=== PATIENT | male | born 1950 | race Caucasian/White ===

== ENCOUNTER 2018-05-22 12:13 | Inpatient (IN) | payer MEDICARE ==
[~2018-05-22] VITALS: Ht 185.4 cm; Wt 48.9 kg
[2018-05-22] MEDS ORDERED: SODIUM CHLORIDE 0.9% 1,000 ML IV ONE (12:31)
[2018-05-22] MEDS ORDERED: ALBUTEROL/IPRATROPIUM 2.5MG/0.5MG, 3 ML ONE (12:41)
[2018-05-22] MEDS ORDERED: SODIUM CHLORIDE 0.9% 1,000ML IVBOLUS ONE (13:00)
[2018-05-22] MEDS ORDERED: ALBUTEROL/IPRATROPIUM 2.5MG/0.5MG, 3 ML NPPB ONE (13:00)
[2018-05-22 13:16] LABS: ALANINE AMINOTRANSFERASE 15 U/L (12-78); ALBUMIN 2.6 g/dL (3.4-5.0); ANION GAP 10 mmol/L (5-15); CALCIUM 8.7 mg/dL (8.5-10.1); CHLORIDE 103 mmol/L (98-107); CREATININE 0.59 mg/dL (0.7-1.3)
[2018-05-22] MEDS ORDERED: CEFTRIAXONE PMX 1GM/50ML 50 ML ONE (13:17)
[2018-05-22 13:20] LABS: ALKALINE PHOSPHATASE 127 U/L (45-117); BILIRUBIN,TOTAL 0.5 mg/dL (0.2-1.0); TOTAL PROTEIN 7.1 g/dL (6.4-8.2); TROPONIN I < 0.015 ng/mL (0.000-0.045)
[2018-05-22] MEDS ORDERED: CEFTRIAXONE PMX 1GM/50ML 50 ML IVPB ONE (13:30)
[2018-05-22] MEDS ORDERED: AZITHROMYCIN 500 MG in SODIUM CHLORIDE 0.9% 250 ML IVPB ONE (13:30)
[2018-05-22 14:19] LABS: BASOPHILS # (AUTO) 0.03 x10^3/uL (0-0.1); BASOPHILS % (AUTO) 0 % (0-1); EOSINOPHILS # (AUTO) 0.02 x10^3/uL (0-0.4); EOSINOPHILS % (AUTO) 0 % (1-7); LYMPHOCYTES # (AUTO) 0.58 x10^3/uL (1-3.4); LYMPHOCYTES % (AUTO) 6 % (22-44); MD NO; MEAN CORPUSCULAR HEMOGLOBIN 33.5 pg (27.5-34.5); MEAN CORPUSCULAR VOLUME 101.5 fL (81-97); MEAN PLATELET VOLUME 9.5 fL (7.4-10.4); MONOCYTES # (AUTO) 0.27 x10^3/uL (0.2-0.8); MONOCYTES % (AUTO) 3 % (2-9); NEUTROPHILS # (AUTO) 8.78 x10^3/uL (1.8-6.8); NEUTROPHILS % (AUTO) 91 % (42-75); PLATELET COUNT 229 x10^3/uL (130-400)
[2018-05-22] MEDS ORDERED: OMNIPAQUE 350 MG/ML, 100ML BOTTLE ONE (15:39)
[2018-05-22] MEDS ORDERED: DOCUSATE 100 MG CAPSULE PO PRN (16:30)
[2018-05-22] MEDS: NICOTINE 21 MG/24 HR PATCH.TD24 TD SCH ×2 (16:30→19:19)
[2018-05-22] MEDS ORDERED: ACETAMINOPHEN 325 MG TABLET PO PRN (16:30)
[2018-05-22] MEDS ORDERED: ONDANSETRON ODT 4 MG PO PRN (16:30)
[2018-05-22] MEDS ORDERED: ALBUTEROL/IPRATROPIUM 2.5MG/0.5MG, 3 ML NPPB PRN (17:00)
[2018-05-22] MEDS ORDERED: POTASSIUM CHLORIDE 20 MEQ TAB.ER.PRT PO ONE (17:00)
[2018-05-22 17:36] LABS: FOLATE LEVEL 11.6 ng/mL (3.1-17.5); THYROID STIMULATING HORMONE 0.654 mIU/L (0.358-3.740)
[2018-05-22] MEDS: CEFTRIAXONE PMX 1GM/50ML 50 ML IV SCH (19:18)
[2018-05-22] MEDS: SODIUM CHLORIDE 0.9% 1,000 ML IV SCH (19:19)
[2018-05-22] MEDS: GUAIFENESIN 200 MG TABLET PO SCH ×2 (19:19→21:00)
[2018-05-22 19:30] VITALS: BP 111/67
[2018-05-22] MEDS: ENOXAPARIN 40 MG/0.4 ML SQ SCH (19:49)
[2018-05-22] MEDS: DOXYCYCLINE 100 MG in DEXTROSE 5% 250 ML IV SCH (21:18)
[2018-05-23 02:00] VITALS: BP 121/72
[2018-05-23] MEDS: GUAIFENESIN 200 MG TABLET PO SCH ×4 (05:24→21:13)
[2018-05-23 06:00] LABS: MEAN CORPUSCULAR HEMOGLOBIN 33.4 pg (27.5-34.5); MEAN CORPUSCULAR HGB CONC 33.3 g/dL (33.2-36.2); MEAN CORPUSCULAR VOLUME 100.3 fL (81-97); MEAN PLATELET VOLUME 9.3 fL (7.4-10.4); PLATELET COUNT 186 x10^3/uL (130-400); RED BLOOD COUNT 3.71 x10^6/uL (4.38-5.82); RED CELL DISTRIBUTION WIDTH 14.1 % (9.4-14.8)
[2018-05-23 06:05] LABS: ALANINE AMINOTRANSFERASE 12 U/L (12-78); ALBUMIN 2.1 g/dL (3.4-5.0); ANION GAP 4 mmol/L (5-15); CHLORIDE 111 mmol/L (98-107); CREATININE 0.55 mg/dL (0.7-1.3)
[2018-05-23 06:07] LABS: ALKALINE PHOSPHATASE 113 U/L (45-117); BILIRUBIN,TOTAL 0.4 mg/dL (0.2-1.0); TOTAL PROTEIN 6.1 g/dL (6.4-8.2)
[2018-05-23 06:23] LABS: MD YES
[2018-05-23 06:27] LABS: BAND#(MANUAL) 0.06 x10^3/uL; BANDS%(MANUAL) 1 % (0-7); LYMPH#(MANUAL) 0.23 x10^3/uL (1-3.4); LYMPHS% (MANUAL) 4 % (22-44); SEG#(MANUAL) 5.42 x10^3/uL (1.8-6.8); SEGS% (MANUAL) 95 % (42-75)
[2018-05-23 06:35] LABS: <PLATELET ESTIMATE> ADEQUATE; ANISOCYTOSIS 1+; POLYCHROMASIA 1+
[2018-05-23 06:37] LABS: LARGE PLATELETS 1+
[2018-05-23 07:03] VITALS: BP 121/75
[2018-05-23] MEDS ORDERED: POTASSIUM PHOSPHATE 44 MEQ in SODIUM CHLORIDE 0.9% 500 ML IV ONE (08:30)
[2018-05-23] MEDS ORDERED: MAGNESIUM SULFATE PMX 4GM/100M 100 ML IV ONE (08:30)
[2018-05-23] MEDS ORDERED: MAGNESIUM SULFATE IN WATER 50 ML IVPB ONE (09:00)
[2018-05-23] MEDS: SODIUM CHLORIDE 0.9% 1,000 ML IV SCH ×2 (09:20→21:13)
[2018-05-23] MEDS: DOXYCYCLINE 100 MG in DEXTROSE 5% 250 ML IV SCH ×2 (09:20→21:13)
[2018-05-23 12:14] VITALS: BP 144/88
[2018-05-23] MEDS: NICOTINE 21 MG/24 HR PATCH.TD24 TD SCH (16:30)
[2018-05-23] MEDS: ENOXAPARIN 40 MG/0.4 ML SQ SCH (16:52)
[2018-05-23 18:56] VITALS: BP 131/78
[2018-05-23] MEDS: CEFTRIAXONE PMX 1GM/50ML 50 ML IV SCH (20:09)
[2018-05-23] MEDS: CEFTRIAXONE 1,000 MG in SODIUM CHLORIDE 0.9% 50 ML IV SCH (20:30)
[2018-05-24 02:00] VITALS: BP 136/74
[2018-05-24 05:49] LABS: MEAN CORPUSCULAR HGB CONC 32.7 g/dL (33.2-36.2); MEAN PLATELET VOLUME 9.2 fL (7.4-10.4); PLATELET COUNT 198 x10^3/uL (130-400); RED BLOOD COUNT 3.58 x10^6/uL (4.38-5.82); RED CELL DISTRIBUTION WIDTH 14.3 % (9.4-14.8)
[2018-05-24] MEDS: GUAIFENESIN 200 MG TABLET PO SCH ×4 (05:56→20:45)
[2018-05-24 06:07] LABS: ANION GAP 5 mmol/L (5-15); CALCIUM 7.8 mg/dL (8.5-10.1); CHLORIDE 106 mmol/L (98-107); CREATININE 0.42 mg/dL (0.7-1.3)
[2018-05-24 06:15] LABS: BASOPHILS # (AUTO) 0.13 x10^3/uL (0-0.1); BASOPHILS % (AUTO) 1 % (0-1); EOSINOPHILS % (AUTO) 0 % (1-7); LYMPHOCYTES % (AUTO) 3 % (22-44); MD SCAN; MONOCYTES # (AUTO) 0.14 x10^3/uL (0.2-0.8); MONOCYTES % (AUTO) 1 % (2-9); NEUTROPHILS # (AUTO) 11.01 x10^3/uL (1.8-6.8); NEUTROPHILS % (AUTO) 94 % (42-75)
[2018-05-24 07:17] VITALS: BP 128/80
[2018-05-24] MEDS: DOXYCYCLINE 100 MG in DEXTROSE 5% 250 ML IV SCH (08:51)
[2018-05-24 12:24] VITALS: BP 122/76
[2018-05-24 13:06] VITALS: BP 127/77
[2018-05-24] MEDS: NICOTINE 21 MG/24 HR PATCH.TD24 TD SCH (16:14)
[2018-05-24] MEDS: ENOXAPARIN 40 MG/0.4 ML SQ SCH (16:14)
[2018-05-24] MEDS: FOLIC ACID 1 MG TABLET PO SCH (16:15)
[2018-05-24] MEDS: THIAMINE 100MG TABLET PO SCH (16:15)
[2018-05-24] MEDS: DOXYCYCLINE 100MG TABLET PO SCH (20:45)
[2018-05-24] MEDS: CEFTRIAXONE 1,000 MG in SODIUM CHLORIDE 0.9% 50 ML IV SCH (20:45)
[2018-05-24 20:46] VITALS: BP 127/82
[2018-05-24 22:20] LABS: CLOSTRIDIUM DIFFICILE ANTIGEN NEGATIVE; CLOSTRIDIUM DIFFICILE TOXIN NEGATIVE (Negative)
[2018-05-25 02:51] VITALS: BP 130/82
[2018-05-25] MEDS: GUAIFENESIN 200 MG TABLET PO SCH ×4 (05:15→20:45)
[2018-05-25 05:22] LABS: MEAN CORPUSCULAR HEMOGLOBIN 33.1 pg (27.5-34.5); MEAN CORPUSCULAR HGB CONC 32.9 g/dL (33.2-36.2); MEAN CORPUSCULAR VOLUME 100.5 fL (81-97); MEAN PLATELET VOLUME 9.7 fL (7.4-10.4); PLATELET COUNT 187 x10^3/uL (130-400); RED BLOOD COUNT 3.54 x10^6/uL (4.38-5.82); RED CELL DISTRIBUTION WIDTH 14.2 % (9.4-14.8)
[2018-05-25 05:26] LABS: ANION GAP 5 mmol/L (5-15); CHLORIDE 104 mmol/L (98-107); CREATININE 0.39 mg/dL (0.7-1.3)
[2018-05-25 05:55] LABS: BASOPHILS # (AUTO) 0.01 x10^3/uL (0-0.1); BASOPHILS % (AUTO) 0 % (0-1); EOSINOPHILS % (AUTO) 0 % (1-7); LYMPHOCYTES # (AUTO) 0.28 x10^3/uL (1-3.4); LYMPHOCYTES % (AUTO) 3 % (22-44); MD SCAN; MONOCYTES % (AUTO) 3 % (2-9); NEUTROPHILS # (AUTO) 10.51 x10^3/uL (1.8-6.8); NEUTROPHILS % (AUTO) 95 % (42-75)
[2018-05-25 07:43] VITALS: BP 140/90
[2018-05-25] MEDS: DOXYCYCLINE 100MG TABLET PO SCH ×2 (09:00→20:45)
[2018-05-25] MEDS: FOLIC ACID 1 MG TABLET PO SCH (09:00)
[2018-05-25] MEDS: THIAMINE 100MG TABLET PO SCH (09:00)
[2018-05-25] MEDS ORDERED: PROMETHAZINE 12.5 MG SUPP PR PRN (10:00)
[2018-05-25] MEDS ORDERED: FENTANYL PF 100 MCG/2ML IV PRN (10:00)
[2018-05-25] MEDS ORDERED: ONDANSETRON ODT 8 MG PO PRN (10:00)
[2018-05-25] MEDS ORDERED: MORPHINE SULFATE 4 MG/ML, 1ML IVPush PRN (10:00)
[2018-05-25] MEDS ORDERED: LABETALOL 5MG/ML, 20ML IV PRN (10:00)
[2018-05-25] MEDS ORDERED: hydrALAzine 20 MG/ML, 1ML IV PRN (10:00)
[2018-05-25] MEDS ORDERED: FENTANYL PF 100 MCG/2ML ONE (10:52)
[2018-05-25] MEDS ORDERED: PROPOFOL 10 MG/ML, 20ML ONE (11:48)
[2018-05-25 14:30] VITALS: BP 121/75
[2018-05-25 14:53] LABS: PSA SCREEN 0.49 ng/mL (0.00-4.00)
[2018-05-25] MEDS ORDERED: OMNIPAQUE 350 MG/ML, 100ML BOTTLE ONE (16:22)
[2018-05-25] MEDS: NICOTINE 21 MG/24 HR PATCH.TD24 TD SCH (17:41)
[2018-05-25] MEDS: ENOXAPARIN 40 MG/0.4 ML SQ SCH (17:41)
[2018-05-25 20:03] VITALS: BP 105/69
[2018-05-25] MEDS: CEFTRIAXONE 1,000 MG in SODIUM CHLORIDE 0.9% 50 ML IV SCH (20:45)
[2018-05-26 01:21] VITALS: BP 112/81
[2018-05-26] MEDS: GUAIFENESIN 200 MG TABLET PO SCH ×4 (05:41→20:25)
[2018-05-26 07:52] VITALS: BP 142/76
[2018-05-26] MEDS: THIAMINE 100MG TABLET PO SCH (08:23)
[2018-05-26] MEDS: FOLIC ACID 1 MG TABLET PO SCH (08:23)
[2018-05-26] MEDS: DOXYCYCLINE 100MG TABLET PO SCH ×2 (08:23→20:25)
[2018-05-26] MEDS ORDERED: MAGNESIUM SULFATE PMX 2GM/50ML 50 ML IV ONE (10:30)
[2018-05-26] MEDS ORDERED: ERGOCALCIFEROL 50,000 UNIT CAPSULE PO SCH (10:30)
[2018-05-26] MEDS: MAGNESIUM CHLORIDE 64 MG TABLET.DR PO SCH ×2 (11:53→20:25)
[2018-05-26 12:04] VITALS: BP 132/78
[2018-05-26] MEDS ORDERED: GADOBUTROL 10 MMOL/10 ML VIAL ONE (13:37)
[2018-05-26] MEDS: NICOTINE 21 MG/24 HR PATCH.TD24 TD SCH (16:53)
[2018-05-26] MEDS: ENOXAPARIN 40 MG/0.4 ML SQ SCH (16:53)
[2018-05-26 19:34] VITALS: BP 119/71
[2018-05-26] MEDS: CEFTRIAXONE 1,000 MG in SODIUM CHLORIDE 0.9% 50 ML IV SCH (20:24)
[2018-05-27 00:49] VITALS: BP 137/81
[2018-05-27 05:10] LABS: BASOPHILS # (AUTO) 0.01 x10^3/uL (0-0.1); BASOPHILS % (AUTO) 0 % (0-1); EOSINOPHILS % (AUTO) 0 % (1-7); LYMPHOCYTES # (AUTO) 0.45 x10^3/uL (1-3.4); LYMPHOCYTES % (AUTO) 4 % (22-44); MD NO; MEAN CORPUSCULAR HEMOGLOBIN 33.1 pg (27.5-34.5); MEAN CORPUSCULAR HGB CONC 32.9 g/dL (33.2-36.2); MEAN CORPUSCULAR VOLUME 100.5 fL (81-97); MEAN PLATELET VOLUME 9.7 fL (7.4-10.4); MONOCYTES # (AUTO) 0.29 x10^3/uL (0.2-0.8); MONOCYTES % (AUTO) 3 % (2-9); NEUTROPHILS # (AUTO) 10.04 x10^3/uL (1.8-6.8); NEUTROPHILS % (AUTO) 93 % (42-75); PLATELET COUNT 189 x10^3/uL (130-400); RED BLOOD COUNT 3.75 x10^6/uL (4.38-5.82); RED CELL DISTRIBUTION WIDTH 13.8 % (9.4-14.8)
[2018-05-27] MEDS: GUAIFENESIN 200 MG TABLET PO SCH ×2 (05:10→11:44)
[2018-05-27 05:23] LABS: ANION GAP 4 mmol/L (5-15); CALCIUM 8.1 mg/dL (8.5-10.1); CHLORIDE 101 mmol/L (98-107)
[2018-05-27 05:33] LABS: CREATININE 0.38 mg/dL (0.7-1.3)
[2018-05-27 06:37] VITALS: BP 153/89
[2018-05-27] MEDS: MAGNESIUM CHLORIDE 64 MG TABLET.DR PO SCH (08:22)
[2018-05-27] MEDS: THIAMINE 100MG TABLET PO SCH (08:22)
[2018-05-27] MEDS: DOXYCYCLINE 100MG TABLET PO SCH (08:22)
[2018-05-27] MEDS: FOLIC ACID 1 MG TABLET PO SCH (08:22)
[2018-05-27] MEDS ORDERED: DOXY100T PO (14:01)
[2018-05-27] MEDS ORDERED: IPRA3AMP NPPB (14:01)
[2018-05-27] MEDS ORDERED: ERGO500017 PO (14:01)
[2018-05-27] MEDS ORDERED: ACET325T14 PO (14:01)
[2018-05-27] MEDS ORDERED: MULT-412 PO (14:01)
[2018-05-27] MEDS ORDERED: CEFD300C37 PO (14:01)
[2018-05-27] MEDS ORDERED: PRED5TAB PO (14:06)
[2018-05-27] MEDS ORDERED: OMEP-110 PO (14:10)
[2018-05-27 14:23] VITALS: BP 132/83
== END 2018-05-27 16:00 | DRG 871 ==
LOC: ED 16:28 → EDIP 16:29 → ED 16:33 → 4WST 18:35
PROVIDERS: ADMIT Hospitalist; ATTEND Hospitalist
PROC: 0DB98ZX Excision of Duodenum, Via Natural or Artificial Opening Endoscopic, Diagnostic (ICD-10-PCS; 2018-05-25)
PROC: 0DB68ZX Excision of Stomach, Via Natural or Artificial Opening Endoscopic, Diagnostic (ICD-10-PCS; 2018-05-25)
PROC: 0DB58ZX Excision of Esophagus, Via Natural or Artificial Opening Endoscopic, Diagnostic (ICD-10-PCS; principal; 2018-05-25 11:15)
DX: A41.9 Sepsis, unspecified organism (principal); J18.9 Pneumonia, unspecified organism; E43 Unspecified severe protein-calorie malnutrition; J44.1 Chronic obstructive pulmonary disease with (acute) exacerbation; J98.11 Atelectasis; E87.2 Acidosis; J44.0 Chronic obstructive pulmonary disease with (acute) lower respiratory infection; Z68.1 Body mass index [BMI] 19.9 or less, adult; D53.9 Nutritional anemia, unspecified; D75.89 Other specified diseases of blood and blood-forming organs; E86.0 Dehydration; E87.6 Hypokalemia; E83.42 Hypomagnesemia; E83.39 Other disorders of phosphorus metabolism; F17.200 Nicotine dependence, unspecified, uncomplicated; K22.2 Esophageal obstruction; K26.9 Duodenal ulcer, unspecified as acute or chronic, without hemorrhage or perforation; K57.30 Diverticulosis of large intestine without perforation or abscess without bleeding; K76.89 Other specified diseases of liver; R29.6 Repeated falls; Z66 Do not resuscitate; Z71.6 Tobacco abuse counseling; Z86.718 Personal history of other venous thrombosis and embolism
CPT/HCPCS: 36415; 71045; 71275; 74177; 74183; 74220; 80048; 80053; 82306; 82378; 82607; 82746; 83605; 83690; 83735; 84100; 84145; 84443; 84484; 85025; 85379; 86301; 87040; 87205; 87324; 87806; 88305; 93005; 93306; 94640; 96374; 96375; A9585; G0103; J0456; J0696; J1650; J2704; J3010; J7060; J7620; Q9967; G0475; J3475; J7030; J7040; J7050; J7512